=== PATIENT | female | born 1950 | race Caucasian/White ===

== ENCOUNTER → 2016-07-11 | Outpatient (CLI) | payer MEDICARE, MEDICAID ==
[~2016-07-11] MED LIST: AMOXICILLIN500 M2 PO; AMOXICILLIN500 MG PO; ATIVAN0.5 MG PO; ATIVAN1 MG PO; BACTRIM DS 8001 TA1 PO; BACTRIM DS 8001 TAB PO; BENADRYL25 M2 PO; BIAXIN500 MG PO; CALCIUM/VITAMIN1 TA8 PO; CARDIZEM CD120 MG PO; CARDIZEM CD240 MG PO; CATAFLAM50 MG PO; CEPHALEXIN500 M1 PO; CIPRO500 MG PO; CIPROFLOXACIN500 MG PO; CLARITIN10 MG PO; CLONIDINE0.3 MG PO; CYCLOBENZAPRINE10 MG PO; CYMBALTA30 MG PO; Catapres-Tts 10.1 MG PO; DEXILANT60 M1 PO; DILTIAZEM HCL120 MG PO; DOXYCYCLINE100 MG PO; EC NAPROSYN500 MG PO; ERYTHROMYCIN OPH1 GM OPH; FELDENE10 MG PO; FELDENE20 MG PO; FLEXERIL5 MG PO; HCTZ/TRIAMTEREN1 CAP PO; HYDRALAZINE HC100 MG PO; K-DUR 20MEQ20 MEQ PO; KEFLEX500 MG PO; LISINOPRIL10 MG PO; LOSARTAN POTASS25 M1 PO; Lopressor25 MG PO; MEDROL DOSEPAK4 MG PO; MELOXICAM7.5 MG PO; METOPROLOL50 MG PO; MOTRIN800 MG PO; PANTOPRAZOLE SO40 MG PO; POTASSIUM CHLO10 ME1 PO; PREDNISONE20 MG PO; PROTONIX40 MG PO; PROVENTIL0.09 MG/AC IH; PYRIDIUM200 M1 PO; PYRIDIUM200 MG PO; TRIAMCINOLONE AC0.1% T; VITAMIN D31000 I1 PO; ZESTRIL40 MG PO; ZITHROMAX Z PA250 MG PO; ZOLOFT50 MG PO; ZYRTEC10 MG PO
== END | disposition home or self-care (01) ==
LOC: RAD 14:14
DX: M50.30 Other cervical disc degeneration, unspecified cervical region (principal); M25.511 Pain in right shoulder

== ENCOUNTER 2016-11-19 08:56 | Emergency (ER) | payer MEDICARE, MEDICAID ==
[~2016-11-19] VITALS: Ht 170.1 cm; Wt 90.7 kg
--- NOTE | ~2016-11-19 | EKG ---
[place], [place] ELECTROCARDIOGRAM REPORT NAME: ROOPA SALCEDO UNIT #: [id number] ROOM: DOCTOR: RAFFY FRANKEL,LORNA BIRTHDATE: [birth year] DOS: 11/19/2016 TIME: 9:32 a.m. IMPRESSION: 1. Sinus rhythm, sinus tachycardia, rate 101. 2. Left axis deviation. 3. Poor R-wave progression. LORNA AKBAR MD CM:EKGRPT:ELECTROCARDIOGRAM REPORT [id number] LORNA AKBAR MD
[2016-11-19 09:23] LABS: BASO % 0.4 % (0.0-1.0); EOS % 0.2 % (1.0-4.0); HEMATOCRIT 44.3 % (37.0-47.0); LYMPH # 1.3 10*3/uL (1.3-4.4); LYMPH % 15.5 % (27.0-41.0); MEAN CELL VOLUME 86.2 fl (81.0-99.0); MEAN CORPUSCULAR HGB 29.2 pg (27.0-31.0); MEAN CORPUSCULAR HGB CONC 33.9 g/dl (33.0-37.0); MEAN PLATELET VOLUME 9.8 fl (9.6-12.3); MONO # 0.6 10*3/uL (0.1-1.0); MONO % 7.1 % (3.0-9.0); NEUT # 6.5 10*3/uL (2.3-7.9); NEUT % 76.2 % (47.0-73.0); PLATELET COUNT AUTOMATED 273 10*3/uL (130-400); RED BLOOD COUNT 5.14 10*6/uL (4.10-5.10); WHITE BLOOD COUNT 8.5 10*3/uL (4.8-10.8)
[2016-11-19 09:39] LABS: ALBUMIN 4.6 gm/dl (3.1-4.5); ALKALINE PHOSPHATASE 109 U/L (45-117); BUN 20 mg/dl (7-24); CHLORIDE 103 mmol/L (98-107); CREATININE 0.87 mg/dL (0.55-1.02); POTASSIUM 3.5 mmol/L (3.5-5.1); SGOT/AST 17 IU/L (3-35); SGPT/ALT 35 U/L (12-78); SODIUM 139 mmol/L (136-145); TOTAL PROTEIN 7.9 gm/dL (6.4-8.2)
[2016-11-19] MEDS ORDERED: HYDRALAZINE HC100 MG PO (09:46)
[2016-11-19] MEDS ORDERED: 'CLONIDINE0.1 MG PO (09:48)
[2016-11-19 10:09] LABS: BILIRUBIN NEGATIVE (NEGATIVE); BLOOD NEGATIVE (NEGATIVE); CLARITY CLEAR (CLEAR); COLOR YELLOW (YELLOW); GLUCOSE NEGATIVE (NEGATIVE); KETONE NEGATIVE (NEGATIVE); LEUKO ESTERASE NEGATIVE (NEGATIVE); NITRITE NEGATIVE (NEGATIVE); PH 6.5 (5.0-9.0); SPECIFIC GRAVITY <= 1.005 (1.005-1.030); UROBILINOGEN 0.2 E.U./dl (0.2-1.0)
[2016-11-19 10:16] LABS: BACTERIA TRACE
== END 2016-11-19 10:33 | disposition home or self-care (01) ==
LOC: ED 08:56
PROVIDERS: Registered Nurse
DX: R51 Headache (principal); R42 Dizziness and giddiness; I10 Essential (primary) hypertension; Z88.1 Allergy status to other antibiotic agents; Z88.6 Allergy status to analgesic agent; Z79.899 Other long term (current) drug therapy

== ENCOUNTER 2016-11-26 16:44 | Emergency (ER) | payer MEDICARE, MEDICAID ==
[~2016-11-26] VITALS: Ht 172.7 cm; Wt 77.1 kg
[~2016-11-26 16:44] MED LIST changes: +'CLONIDINE0.1 MG PO
[2016-11-26 17:34] LABS: BASO % 0.5 % (0.0-1.0); EOS # 0.1 10*3/uL (0.0-0.4); EOS % 0.7 % (1.0-4.0); HEMATOCRIT 44.6 % (37.0-47.0); HEMOGLOBIN 15.1 g/dl (12.0-16.0); LYMPH # 1.6 10*3/uL (1.3-4.4); LYMPH % 21.1 % (27.0-41.0); MEAN CELL VOLUME 85.8 fl (81.0-99.0); MEAN CORPUSCULAR HGB CONC 33.9 g/dl (33.0-37.0); MEAN PLATELET VOLUME 9.7 fl (9.6-12.3); MONO # 0.8 10*3/uL (0.1-1.0); MONO % 10.1 % (3.0-9.0); NEUT # 5.2 10*3/uL (2.3-7.9); NEUT % 67.2 % (47.0-73.0); PLATELET COUNT AUTOMATED 269 10*3/uL (130-400); RED CELL DISTRI WIDTH 12.1 % (0-14.5); WHITE BLOOD COUNT 7.7 10*3/uL (4.8-10.8)
[2016-11-26 17:51] LABS: ALBUMIN 4.5 gm/dl (3.1-4.5); ALKALINE PHOSPHATASE 90 U/L (45-117); BUN 16 mg/dl (7-24); CHLORIDE 107 mmol/L (98-107); CREATININE 0.83 mg/dL (0.55-1.02); POTASSIUM 3.3 mmol/L (3.5-5.1); SGOT/AST 20 IU/L (3-35); SGPT/ALT 32 U/L (12-78); SODIUM 140 mmol/L (136-145); TOTAL PROTEIN 7.1 gm/dL (6.4-8.2)
[2016-11-26 17:52] LABS: TROPONIN I < 0.015 ng/ml (<0.045)
== END 2016-11-26 17:50 | disposition short-term general hospital (02) ==
LOC: ED 16:44
PROVIDERS: Emergency Medicine
DX: I63.9 Cerebral infarction, unspecified (principal); I10 Essential (primary) hypertension; Z90.710 Acquired absence of both cervix and uterus; Z98.890 Other specified postprocedural states; Z79.899 Other long term (current) drug therapy; Z88.5 Allergy status to narcotic agent; Z88.1 Allergy status to other antibiotic agents; Z88.8 Allergy status to other drugs, medicaments and biological substances

== ENCOUNTER 2017-03-18 17:05 | Inpatient (IN) | payer MEDICARE, MEDICAID ==
[~2017-03-18] VITALS: Ht 170.1 cm; Wt 95.8 kg
--- NOTE | ~2017-03-18 | CON ---
[place], [place] REPORT OF CONSULTATION NAME: ROOPA SALCEDO UNIT #: [id number] ROOM: 529 DOCTOR: VAISHALI PRESTON MD BIRTHDATE: [birth year] DOS: 03/19/2017 HISTORY OF PRESENT ILLNESS: A 66-year-old patient who presented with chief complaint of sudden diarrhea. She explains is 66 times bowel movement in 1 day, subsequently has settled down by next day and she even has had a solid bowel movement today. The patient was admitted through the Emergency Room and lactic acid was 1.9. Comprehensive metabolic panel, GFR normal. Potassium 3.4 was addressed. Liver function tests normal. Lipase within normal limits. Rapid flu negative for A and B antigen. CBC: White blood cell was 18, H and H of 15 and 44, differential with neutrophil shift. CT scan of the abdomen and pelvis was done, mild colitis in left colon as expected to be reported. White blood cell dropped to 11.9 and potassium was supplemented 43.3 K. Folic acid and B12 within normal limit. Urine cultures were unremarkable. C. diff was negative. PAST MEDICAL HISTORY: Associated hypertension, anxiety, fibromyalgia, history of gastritis secondary to nonsteroidal anti-inflammatory. PAST SURGICAL HISTORY: Cholecystectomy, hysterectomy, benign breast biopsy, varicocele after extremity correction and tonsillectomy, corrective surgery of the eyes or strabismus. SOCIAL HISTORY: Nonsmoker, nonalcohol consumer. FAMILY HISTORY: Noncontributory. ALLERGIES: BACTRIM, DEMEROL AND LASIX, SHE SAYS. MEDICATIONS: At home has been reviewed including Dexilant, hydralazine, lorazepam, losartan and diltiazem. REVIEW OF SYSTEMS: HEENT: Denies double vision, blurred vision. RESPIRATORY: Denies acute shortness of breath. CARDIOVASCULAR: Denies acute chest pain. DIGESTIVE SYSTEM: Acute diarrhea 1 day duration. PHYSICAL EXAMINATION: VITAL SIGNS: Stable, nontoxic patient. HEAD, EARS, EYES, NOSE AND THROAT: Head normocephalic, nontraumatic. Mouth and buccal mucosa benign. NECK: Supple, no thyromegaly, no cervical lymphadenopathy. CHEST: Symmetric anatomy, equal expansion. No wheeze, no rhonchi. HEART: Normal sinus rhythm, no gallop, no murmur. ABDOMEN: Soft. No hepato-organomegaly. Bowel sounds present. No pulsatile mass. EXTREMITIES: No cyanosis, no pedal edema. NEUROLOGIC: Alert, oriented to time, place, person. IMPRESSION: Viral gastroenteritis, hypertension, anxiety, fibromyalgia. [place], [place] REPORT OF CONSULTATION NAME: ROOPA SALCEDO UNIT #: [id number] ROOM: 529 DOCTOR: VAISHALI PRESTON MD BIRTHDATE: [birth year] PLAN AND DISCUSSION: Hypokalemia has been addressed. IV hydration has been given. The patient back on regular diet. She has been tolerating food. C. diff has been negative. Supportive management and follow up as outpatient. VAISHALI PRESTON MD CM:CONSTR:REPORT OF CONSULTATION 1425 03/19/17 1522 interface
--- NOTE | ~2017-03-18 | PR ---
[place], [place] PROGRESS NOTE NAME: ROOPA SALCEDO UNIT #: [id number] ROOM: 529 DOCTOR: JO VALIENTE MD BIRTHDATE: [birth year] DOS: SUBJECTIVE: The patient states that she feels better. Her diarrhea has completely resolved. Only complaint that she has some back pain from the fibromyalgia flaring up. OBJECTIVE: VITAL SIGNS: Graphic trend shows pressure 132/72, pulse 100, respirations 18 and temperature 98.4. LUNGS: Clear. HEART: Regular. ABDOMEN: Soft. EXTREMITIES: Without any edema. ASSESSMENT AND PLAN: 1. Acute viral gastroenteritis with elevated white cell count, which has resolved. The patient's Clostridium difficile titers were negative. 2. Hypokalemia. Supplementation was given. The patient is stable. The plan is to discharge her to home today. Follow up as an outpatient. JO VALIENTE MD CM:PNTRANS [id number] JO VALIENTE MD 03/20/17 0907 interface
--- NOTE | ~2017-03-18 | DS ---
[place], [place] DISCHARGE SUMMARY NAME: ROOPA SALCEDO UNIT #: [id number] ROOM: 529 DOCTOR: JO VALIENTE MD BIRTHDATE: [birth year] DOS: 03/20/2017 DIAGNOSES: 1. Acute viral gastroenteritis. 2. Hypokalemia. 3. Bleeding per rectum from hemorrhoids. 4. Generalized anxiety disorder. 5. Benign hypertension. 6. Fibromyalgia. HOSPITAL COURSE: The patient is very well known to us, comes in with complaints of multiple episodes of diarrhea. Please see H and P dictated for further details after the patient was admitted. The patient was placed on IV antibiotics and IV fluids. The patient's diarrhea resolved completely. Dr. Harman did see the patient. After multiple episodes of diarrhea, she did have some small amounts of bright red blood per rectum, possibly from wiping and hemorrhoid. Dr. Harman advised consultation as an outpatient for colonoscopy. The patient this morning is stable without any complaints. Her diarrhea has completely resolved. She is eating a regular diet. She has no other GI complaints. The plan is to discharge her to home today. Follow up as an outpatient. JO VALIENTE MD CM:KEISHA [phone] JO VALIENTE MD 03/20/17 1505 interface
--- NOTE | ~2017-03-18 | WRIGHTHP ---
[place], [place] PATIENT HISTORY AND PHYSICAL EXAM NAME: ROOPA SALCEDO UNIT #: [id number] ROOM: 529 DOCTOR: JO VALIENTE MD BIRTHDATE: [birth year] DOS: 03/18/2017 HISTORY OF PRESENT ILLNESS: This patient is 66 years old. The patient said she had a virus with fever, cough and slight chest congestion a few days ago, was seen at [facility], was given a Z-YESI and she was starting to feel better. Two days ago she had visited her daughter's house, multiple family members had diarrhea. Yesterday she started having diarrhea and had multiple bowel movements. She could not remember the number of time she had gone, so decided to come into the emergency room. She denies having any chest pains or palpitations, not have any abdominal pain, nausea, any emesis. Does not have any chest pains or palpitations. PAST MEDICAL HISTORY: Significant for; 1. Benign hypertension. 2. Generalized anxiety disorder. 3. History of UTI. 4. Hemorrhagic cystitis by history. MEDICATIONS: She is currently are clonidine, Os-Caleb, Flexeril, Dexilant, diltiazem, hydralazine, lorazepam, and losartan. SOCIAL HISTORY: Nonsmoker, does not use any alcohol. PHYSICAL EXAMINATION: GENERAL: She is awake and alert and oriented. VITAL SIGNS: Blood pressure is 154/90, pulse of 111, respirations 18, temperature 98.7. LUNGS: Clear. HEART: Regular. ABDOMEN: Soft, scaphoid, nontender this morning. EXTREMITIES: Without any edema. LABORATORY DATA: Lactic acid was 1.9. White cell count was elevated at 18.3. Comprehensive glucose 149. Electrolytes were normal. Potassium 3.4. ASSESSMENT AND PLAN: 1. The patient with viral gastroenteritis with elevated white cell count, rule out infectious pathology, C. diff titers will be sent. Flagyl will be continued. 2. Benign hypertension. Restart home medications. 3. Hypokalemia. Supplementation will be given. 4. Possibility of urinary tract infection. Urine culture so far is coming back negative. [place], [place] PATIENT HISTORY AND PHYSICAL EXAM NAME: ROOPA SALCEDO UNIT #: [id number] ROOM: 529 DOCTOR: OJ VALIENTE MD BIRTHDATE: [birth year] JO VALIENTE MD CM:HISPHYS:PATIENT HISTORY AND PHYSICAL EXAMINATION 1033 [id number] JO VALIENTE MD 03/19/17 1347 interface
[2017-03-18 17:15] VITALS: BP 155/91
[2017-03-18 18:08] LABS: HEMATOCRIT 44.6 % (37.0-47.0); MEAN CELL VOLUME 87.1 fl (81.0-99.0); MEAN CORPUSCULAR HGB 29.3 pg (27.0-31.0); MEAN CORPUSCULAR HGB CONC 33.6 g/dl (33.0-37.0); MEAN PLATELET VOLUME 9.2 fl (9.6-12.3); PLATELET COUNT AUTOMATED 282 10*3/uL (130-400); RED BLOOD COUNT 5.12 10*6/uL (4.10-5.10); RED CELL DISTRI WIDTH 12.8 % (0-14.5); WHITE BLOOD COUNT 18.3 10*3/uL (4.8-10.8)
[2017-03-18 18:10] LABS: BILIRUBIN 2+ (NEGATIVE); BLOOD NEGATIVE (NEGATIVE); CLARITY SL CLOUDY (CLEAR); COLOR YELLOW (YELLOW); GLUCOSE NEGATIVE (NEGATIVE); KETONE 1+ (NEGATIVE); LEUKO ESTERASE TRACE (NEGATIVE); NITRITE POSITIVE (NEGATIVE); PH 5.5 (5.0-9.0); SPECIFIC GRAVITY >= 1.030 (1.005-1.030)
[2017-03-18 18:24] LABS: ALBUMIN 4.4 gm/dl (3.1-4.5); ALKALINE PHOSPHATASE 91 U/L (45-117); BUN 16 mg/dl (7-24); CHLORIDE 102 mmol/L (98-107); CREATININE 0.85 mg/dL (0.55-1.02); LIPASE 90 U/L (73-393); POTASSIUM 3.4 mmol/L (3.5-5.1); SGOT/AST 19 IU/L (3-35); SGPT/ALT 40 U/L (12-78); SODIUM 140 mmol/L (136-145); TOTAL PROTEIN 7.7 gm/dL (6.4-8.2)
[2017-03-18 18:30] LABS: BACTERIA 2+; MUCOUS TRACE; RBC 0-2 rbc/hpf (0-2); URIC ACID CRYSTALS 4+
[2017-03-18 18:30] LABS: TOTAL CELLS COUNTED 100 #CELLS
[2017-03-18 18:31] LABS: PLATELET SUFFICIENCY NORMAL (NORMAL)
[2017-03-18 20:01] VITALS: BP 162/97
[2017-03-18 20:32] VITALS: BP 145/98
[2017-03-18] MEDS ORDERED: CALCIUM500 M1 PO (20:45)
[2017-03-18] MEDS ORDERED: DEXILANT60 M1 PO (20:49)
[2017-03-18] MEDS ORDERED: CYCLOBENZAPRINE10 MG PO (20:50)
[2017-03-18] MEDS ORDERED: ATIVAN1 MG PO (20:51)
[2017-03-18] MEDS ORDERED: ATIVAN0.5 MG PO (20:51)
[2017-03-19] VITALS: BP 147/84
[2017-03-19 06:12] LABS: BASO % 0.3 % (0.0-1.0); EOS % 0.3 % (1.0-4.0); HEMATOCRIT 40.6 % (37.0-47.0); HEMOGLOBIN 13.5 g/dl (12.0-16.0); LYMPH # 1.3 10*3/uL (1.3-4.4); LYMPH % 10.7 % (27.0-41.0); MEAN CELL VOLUME 88.6 fl (81.0-99.0); MEAN CORPUSCULAR HGB 29.5 pg (27.0-31.0); MEAN CORPUSCULAR HGB CONC 33.3 g/dl (33.0-37.0); MEAN PLATELET VOLUME 9.8 fl (9.6-12.3); MONO # 0.8 10*3/uL (0.1-1.0); NEUT # 9.7 10*3/uL (2.3-7.9); NEUT % 81.2 % (47.0-73.0); PLATELET COUNT AUTOMATED 305 10*3/uL (130-400); RED BLOOD COUNT 4.58 10*6/uL (4.10-5.10); WHITE BLOOD COUNT 11.9 10*3/uL (4.8-10.8)
[2017-03-19 06:17] LABS: ALBUMIN 3.7 gm/dl (3.1-4.5); ALKALINE PHOSPHATASE 76 U/L (45-117); BUN 11 mg/dl (7-24); CHLORIDE 108 mmol/L (98-107); CHOLESTEROL 131 mg/dL (<200); CREATININE 0.84 mg/dL (0.55-1.02); FREE T4 1.28 ng/dl (0.76-1.46); HDL CHOLESTEROL 65 mg/dl (40-60); LDL CHOLESTEROL 48 mg/dL (9-159); PHOSPHOROUS 2.1 mg/dL (2.5-4.9); POTASSIUM 3.3 mmol/L (3.5-5.1); SGOT/AST 25 IU/L (3-35); SGPT/ALT 38 U/L (12-78); SODIUM 143 mmol/L (136-145); TOTAL PROTEIN 6.5 gm/dL (6.4-8.2); TRIGLYCERIDES 90 mg/dl (<150); VLDL CHOLESTEROL 18 mg/dL (6-40)
[2017-03-19 06:49] LABS: ACT PARTIAL THROMBO TIME 26.3 SECONDS (20.8-31.5)
[2017-03-19 07:39] LABS: VITAMIN D, 25-HYDROXY 19.7 ng/mL (30-100)
[2017-03-19 08:00] VITALS: BP 154/95
[2017-03-19 12:00] VITALS: BP 149/91
[2017-03-19 16:00] VITALS: BP 174/91
[2017-03-19 20:00] VITALS: BP 138/74
[2017-03-20] VITALS: BP 132/72
[2017-03-20 08:00] VITALS: BP 140/83
[2017-03-20] MEDS ORDERED: FLAGYL500 MG PO (08:39)
== END 2017-03-20 09:55 | disposition home or self-care (01) | DRG 872 ==
LOC: ED 17:05 → EDHOLD 19:29 → 5E 19:29
PROVIDERS: Hospitalist; Physician Assistant
DX: A41.9 Sepsis, unspecified organism (principal); A08.4 Viral intestinal infection, unspecified; K62.5 Hemorrhage of anus and rectum; I10 Essential (primary) hypertension; E87.6 Hypokalemia; M79.7 Fibromyalgia; K64.9 Unspecified hemorrhoids; F41.1 Generalized anxiety disorder; Z87.440 Personal history of urinary (tract) infections; Z79.899 Other long term (current) drug therapy; Z88.1 Allergy status to other antibiotic agents; Z88.8 Allergy status to other drugs, medicaments and biological substances; Z90.710 Acquired absence of both cervix and uterus; Z83.3 Family history of diabetes mellitus; Z82.49 Family history of ischemic heart disease and other diseases of the circulatory system; Z80.9 Family history of malignant neoplasm, unspecified; Z90.49 Acquired absence of other specified parts of digestive tract

== ENCOUNTER → 2017-04-02 | Outpatient (CLI) | payer MEDICARE, MEDICAID ==
[~2017-04-02] MED LIST changes: +CALCIUM500 M1 PO; +FLAGYL500 MG PO
[2017-04-02 13:01] LABS: CREATININE 0.86 mg/dL (0.55-1.02)
== END | disposition home or self-care (01) ==
LOC: LAB 12:02
PROVIDERS: Internal Medicine
DX: R22.1 Localized swelling, mass and lump, neck (principal)

== ENCOUNTER → 2017-04-03 | Outpatient (CLI) | payer MEDICARE, MEDICAID | END | disposition home or self-care (01) | LOC: MRI 01:14 | DX: M50.322 Other cervical disc degeneration at C5-C6 level (principal); M46.02 Spinal enthesopathy, cervical region; M48.02 Spinal stenosis, cervical region ==

== ENCOUNTER → 2017-04-04 | Outpatient (CLI) | payer MEDICARE, MEDICAID | END | disposition home or self-care (01) | LOC: CT 01:34 | DX: M62.48 Contracture of muscle, other site (principal); H92.03 Otalgia, bilateral; R22.1 Localized swelling, mass and lump, neck ==

== ENCOUNTER 2017-05-23 02:57 | Emergency (ER) | payer MEDICARE, MEDICAID ==
[~2017-05-23] VITALS: Ht 172.7 cm; Wt 104.3 kg
[2017-05-23] MEDS ORDERED: PREDNISONE20 M1 PO (03:44)
== END 2017-05-23 04:58 | disposition home or self-care (01) ==
LOC: ED 02:57
DX: T78.40XA Allergy, unspecified, initial encounter (principal); I10 Essential (primary) hypertension; Z88.1 Allergy status to other antibiotic agents; Z88.8 Allergy status to other drugs, medicaments and biological substances; Z88.6 Allergy status to analgesic agent; Z79.899 Other long term (current) drug therapy; Z86.73 Personal history of transient ischemic attack (TIA), and cerebral infarction without residual deficits; X58.XXXA Exposure to other specified factors, initial encounter

== ENCOUNTER → 2017-05-25 | Outpatient (CLI) | payer MEDICARE, MEDICAID ==
[~2017-05-25] MED LIST changes: +PREDNISONE20 M1 PO
== END | disposition home or self-care (01) ==
LOC: LAB 05-22 11:53
DX: E11.9 Type 2 diabetes mellitus without complications (principal)

== ENCOUNTER 2017-06-08 17:38 | Emergency (ER) | payer MEDICARE, MEDICAID ==
[~2017-06-08] VITALS: Ht 170.1 cm; Wt 86.2 kg
[2017-06-08] MEDS ORDERED: KENALOG 0.025%15 GM T (17:54)
[2017-06-08] MEDS ORDERED: METHYLPRED-DP4 MG PO (17:54)
[2017-06-08] MEDS ORDERED: ATARAX,VISTARIL50 MG PO (18:02)
== END 2017-06-08 18:13 | disposition home or self-care (01) ==
LOC: ED 17:38
DX: L23.9 Allergic contact dermatitis, unspecified cause (principal); Z88.2 Allergy status to sulfonamides; Z88.8 Allergy status to other drugs, medicaments and biological substances; Z79.899 Other long term (current) drug therapy

== ENCOUNTER 2017-08-19 15:50 | Emergency (ER) | payer MEDICARE, MEDICAID ==
[~2017-08-19] VITALS: Wt 83.5 kg
[~2017-08-19 15:50] MED LIST changes: +ATARAX,VISTARIL50 MG PO; +KENALOG 0.025%15 GM T; +METHYLPRED-DP4 MG PO
[2017-08-19 16:11] LABS: BILIRUBIN NEGATIVE (NEGATIVE); BLOOD NEGATIVE (NEGATIVE); CLARITY CLEAR (CLEAR); COLOR YELLOW (YELLOW); GLUCOSE NEGATIVE (NEGATIVE); KETONE NEGATIVE (NEGATIVE); LEUKO ESTERASE TRACE (NEGATIVE); NITRITE NEGATIVE (NEGATIVE); PH 6.5 (5.0-9.0); SPECIFIC GRAVITY <= 1.005 (1.005-1.030); UROBILINOGEN 0.2 E.U./dl (0.2-1.0)
[2017-08-19 16:23] LABS: BACTERIA TRACE
[2017-08-19] MEDS ORDERED: MACRODANTIN100 M1 PO (16:32)
== END 2017-08-19 16:36 | disposition home or self-care (01) ==
LOC: ED 15:50
PROVIDERS: Registered Nurse
DX: N39.0 Urinary tract infection, site not specified (principal); Z79.899 Other long term (current) drug therapy

== ENCOUNTER 2017-10-13 09:05 | Emergency (ER) | payer MEDICARE, MEDICAID ==
[~2017-10-13] VITALS: Ht 170.1 cm; Wt 71.7 kg
[~2017-10-13 09:05] MED LIST changes: +MACRODANTIN100 M1 PO
[2017-10-13] MEDS ORDERED: VITAMIN D-32000 UNIT PO (09:25)
[2017-10-13] MEDS ORDERED: ZOVIRAX800 MG PO (09:47)
[2017-10-13] MEDS ORDERED: NORCO 10-325 T1 EACH PO (09:47)
== END 2017-10-13 09:55 | disposition home or self-care (01) ==
LOC: ED 09:05
DX: B02.9 Zoster without complications (principal); I10 Essential (primary) hypertension; Z90.710 Acquired absence of both cervix and uterus; Z98.890 Other specified postprocedural states; Z79.899 Other long term (current) drug therapy; Z86.73 Personal history of transient ischemic attack (TIA), and cerebral infarction without residual deficits; Z88.8 Allergy status to other drugs, medicaments and biological substances; Z88.5 Allergy status to narcotic agent; Z88.1 Allergy status to other antibiotic agents

== ENCOUNTER 2017-12-26 05:57 | Emergency (ER) | payer MEDICARE, MEDICAID ==
[~2017-12-26] VITALS: Ht 170.1 cm; Wt 90.7 kg
[~2017-12-26 05:57] MED LIST changes: +NORCO 10-325 T1 EACH PO; +VITAMIN D-32000 UNI1 PO; +ZOVIRAX800 MG PO
[2017-12-26 06:59] LABS: BILIRUBIN 1+ (NEGATIVE); BLOOD 3+ (NEGATIVE); CLARITY TURBID (CLEAR); COLOR RED (YELLOW); GLUCOSE NEGATIVE (NEGATIVE); KETONE 1+ (NEGATIVE); LEUKO ESTERASE 3+ (NEGATIVE); NITRITE NEGATIVE (NEGATIVE); UROBILINOGEN 0.2 E.U./dl (0.2-1.0)
[2017-12-26 07:02] LABS: BACTERIA 2+; RBC TNTC rbc/hpf (0-2); WBC TNTC wbc/hpf (0-5)
[2017-12-26] MEDS ORDERED: PYRIDIUM200 M1 PO (07:07)
[2017-12-26] MEDS ORDERED: CIPRO500 MG PO (07:07)
== END 2017-12-26 07:13 | disposition home or self-care (01) ==
LOC: ED 05:57
PROVIDERS: Emergency Medicine
DX: N39.0 Urinary tract infection, site not specified (principal); I10 Essential (primary) hypertension; Z88.8 Allergy status to other drugs, medicaments and biological substances; Z88.2 Allergy status to sulfonamides; Z79.899 Other long term (current) drug therapy; Z90.710 Acquired absence of both cervix and uterus

== ENCOUNTER → 2018-02-16 | Outpatient (CLI) | payer MEDICARE, MEDICAID | END | disposition home or self-care (01) | LOC: LAB 14:00 | DX: N39.0 Urinary tract infection, site not specified (principal) ==

== ENCOUNTER 2018-06-07 12:35 | Emergency (ER) | payer MEDICARE, MEDICAID ==
[~2018-06-07] VITALS: Ht 170.1 cm; Wt 90.7 kg
[2018-06-07] MEDS ORDERED: CYCLOBENZAPRINE10 MG PO (16:21)
[2018-06-07] MEDS ORDERED: Motrin,Rufen800 MG PO (16:21)
== END 2018-06-07 17:10 | disposition home or self-care (01) ==
LOC: ED 12:35
DX: S40.012A Contusion of left shoulder, initial encounter (principal); S09.90XA Unspecified injury of head, initial encounter; M79.602 Pain in left arm; I10 Essential (primary) hypertension; Z86.73 Personal history of transient ischemic attack (TIA), and cerebral infarction without residual deficits; Z88.8 Allergy status to other drugs, medicaments and biological substances; Z88.2 Allergy status to sulfonamides; Z88.6 Allergy status to analgesic agent; Z79.899 Other long term (current) drug therapy; W10.8XXA Fall (on) (from) other stairs and steps, initial encounter; Y93.89 Activity, other specified; Y92.89 Other specified places as the place of occurrence of the external cause; Y99.8 Other external cause status

== ENCOUNTER → 2019-05-22 | Outpatient (CLI) | payer OTHER, MEDICAID ==
[~2019-05-22] MED LIST changes: +Motrin,Rufen800 MG PO
[2019-05-22 08:01] LABS: BASO % 0.4 % (0.0-1.0); EOS # 0.1 10*3/uL (0.0-0.4); EOS % 0.7 % (1.0-4.0); HEMATOCRIT 43.4 % (37.0-47.0); HEMOGLOBIN 14.3 g/dl (12.0-16.0); LYMPH # 1.6 10*3/uL (1.3-4.4); LYMPH % 21.6 % (27.0-41.0); MEAN CELL VOLUME 91.2 fl (81.0-99.0); MEAN CORPUSCULAR HGB CONC 32.9 g/dl (33.0-37.0); MEAN PLATELET VOLUME 9.6 fl (9.6-12.3); MONO # 0.5 10*3/uL (0.1-1.0); MONO % 7.1 % (3.0-9.0); NEUT # 5.3 10*3/uL (2.3-7.9); NEUT % 69.9 % (47.0-73.0); PLATELET COUNT AUTOMATED 292 10*3/uL (130-400); RED BLOOD COUNT 4.76 10*6/uL (4.10-5.10); RED CELL DISTRI WIDTH 13.1 % (0-14.5); WHITE BLOOD COUNT 7.6 10*3/uL (4.8-10.8)
[2019-05-22 08:32] LABS: ALBUMIN 3.9 gm/dl (3.1-4.5); ALKALINE PHOSPHATASE 74 U/L (45-117); BUN 22 mg/dl (7-24); CHLORIDE 106 mmol/L (98-107); CHOLESTEROL 161 mg/dL (<200); CREATININE 0.78 mg/dL (0.55-1.02); FREE T4 1.02 ng/dl (0.76-1.46); HDL CHOLESTEROL 80 mg/dl (40-60); LDL CHOLESTEROL 71 mg/dL (9-159); POTASSIUM 3.7 mmol/L (3.5-5.1); SGOT/AST 14 IU/L (3-35); SGPT/ALT 27 U/L (12-78); SODIUM 140 mmol/L (136-145); TRIGLYCERIDES 51 mg/dl (<150); VLDL CHOLESTEROL 10 mg/dL (6-40)
[2019-05-22 08:52] LABS: VITAMIN D, 25-HYDROXY 25.5 ng/mL (30-100)
== END | disposition home or self-care (01) ==
LOC: LAB 07:22
PROVIDERS: Internal Medicine
DX: Z00.00 Encounter for general adult medical examination without abnormal findings (principal); Z13.1 Encounter for screening for diabetes mellitus; I10 Essential (primary) hypertension; E55.9 Vitamin D deficiency, unspecified; E78.2 Mixed hyperlipidemia

== ENCOUNTER → 2019-07-30 | Outpatient (CLI) | payer OTHER, MEDICAID | END | disposition home or self-care (01) | LOC: MAMMO 14:00 | DX: Z12.31 Encounter for screening mammogram for malignant neoplasm of breast (principal) ==

== ENCOUNTER → 2020-04-08 | Outpatient (CLI) | payer OTHER, MEDICAID | END | disposition home or self-care (01) | LOC: COVID19 11:24 | PROVIDERS: ATTEND Internal Medicine | DX: Z20.822 Contact with and (suspected) exposure to COVID-19 (principal) ==

== ENCOUNTER → 2020-08-10 | Outpatient (CLI) | payer OTHER, MEDICAID | END | disposition home or self-care (01) | LOC: RAD 13:47 → MAMMO 14:30 | PROVIDERS: ATTEND Internal Medicine | DX: Z12.31 Encounter for screening mammogram for malignant neoplasm of breast (principal); Z13.820 Encounter for screening for osteoporosis; Z78.0 Asymptomatic menopausal state ==

== ENCOUNTER → 2020-09-09 | Outpatient (CLI) | payer OTHER, MEDICAID ==
[2020-09-09 08:11] LABS: BASO % 0.5 % (0.0-1.0); EOS # 0.1 10*3/uL (0.0-0.4); EOS % 0.9 % (1.0-4.0); HEMATOCRIT 38.8 % (37.0-47.0); LYMPH # 1.8 10*3/uL (1.3-4.4); LYMPH % 27.5 % (27.0-41.0); MEAN CELL VOLUME 91.1 fl (81.0-99.0); MEAN CORPUSCULAR HGB 30.3 pg (27.0-31.0); MEAN CORPUSCULAR HGB CONC 33.2 g/dl (33.0-37.0); MEAN PLATELET VOLUME 8.8 fl (9.6-12.3); MONO # 0.7 10*3/uL (0.1-1.0); MONO % 10.9 % (3.0-9.0); NEUT # 3.9 10*3/uL (2.3-7.9); NEUT % 59.9 % (47.0-73.0); PLATELET COUNT AUTOMATED 308 10*3/uL (130-400); RED BLOOD COUNT 4.26 10*6/uL (4.10-5.10); RED CELL DISTRI WIDTH 12.9 % (0-14.5); WHITE BLOOD COUNT 6.5 10*3/uL (4.8-10.8)
[2020-09-09 08:44] LABS: ALBUMIN 3.5 gm/dl (3.1-4.5); ALKALINE PHOSPHATASE 60 U/L (45-117); BUN 15 mg/dl (7-24); CHLORIDE 107 mmol/L (98-107); CHOLESTEROL 152 mg/dL (<200); CREATININE 0.72 mg/dL (0.55-1.02); LDL CHOLESTEROL 75 mg/dL (9-159); POTASSIUM 3.4 mmol/L (3.5-5.1); SGOT/AST 13 IU/L (3-35); SODIUM 139 mmol/L (136-145); TOTAL PROTEIN 6.4 gm/dL (6.4-8.2); TRIGLYCERIDES 60 mg/dl (<150)
[2020-09-09 08:50] LABS: FREE T4 0.99 ng/dl (0.76-1.46); SGPT/ALT 19 U/L (12-78)
[2020-09-09 08:51] LABS: VITAMIN D, 25-HYDROXY 55.2 ng/mL (30-100)
== END | disposition home or self-care (01) ==
LOC: LAB 07:52
PROVIDERS: ATTEND Internal Medicine
DX: I10 Essential (primary) hypertension (principal); E55.9 Vitamin D deficiency, unspecified; E78.2 Mixed hyperlipidemia; Z13.1 Encounter for screening for diabetes mellitus; Z13.21 Encounter for screening for nutritional disorder; Z00.01 Encounter for general adult medical examination with abnormal findings

== ENCOUNTER → 2020-11-09 | Outpatient (CLI) | payer OTHER, MEDICAID ==
[~2020-11-09] MED LIST changes: +POTASSIUM CHLO10 ME4 PO
== END | disposition home or self-care (01) ==
LOC: INJECTION 11-08 09:00
PROVIDERS: ATTEND Internal Medicine
DX: M81.0 Age-related osteoporosis without current pathological fracture (principal); I10 Essential (primary) hypertension; K21.9 Gastro-esophageal reflux disease without esophagitis; F41.9 Anxiety disorder, unspecified

== ENCOUNTER → 2021-03-31 | Outpatient (CLI) | payer OTHER, MEDICAID | END | disposition home or self-care (01) | LOC: COVID19 15:42 | PROVIDERS: ATTEND Internal Medicine | DX: Z20.822 Contact with and (suspected) exposure to COVID-19 (principal) ==

== ENCOUNTER → 2021-05-12 | Outpatient (CLI) | payer OTHER, MEDICAID | END | disposition home or self-care (01) | LOC: INJECTION 12:56 | PROVIDERS: ATTEND Internal Medicine | DX: M81.0 Age-related osteoporosis without current pathological fracture (principal) ==

== ENCOUNTER → 2021-08-06 | Outpatient (CLI) | payer OTHER, MEDICAID ==
[2021-08-06 08:39] LABS: BASO % 0.4 % (0.0-1.0); EOS % 0.4 % (1.0-4.0); HEMATOCRIT 40.9 % (37.0-47.0); LYMPH # 1.6 10*3/uL (1.3-4.4); LYMPH % 21.1 % (27.0-41.0); MEAN CELL VOLUME 86.5 fl (81.0-99.0); MEAN CORPUSCULAR HGB 29.4 pg (27.0-31.0); MEAN PLATELET VOLUME 9.2 fl (9.6-12.3); MONO # 0.6 10*3/uL (0.1-1.0); NEUT # 5.2 10*3/uL (2.3-7.9); NEUT % 69.8 % (47.0-73.0); PLATELET COUNT AUTOMATED 292 10*3/uL (130-400); RED BLOOD COUNT 4.73 10*6/uL (4.10-5.10); RED CELL DISTRI WIDTH 12.5 % (0-14.5); WHITE BLOOD COUNT 7.5 10*3/uL (4.8-10.8)
[2021-08-06 09:00] LABS: ALKALINE PHOSPHATASE 56 U/L (45-117); BUN 16 mg/dl (7-24); CHLORIDE 108 mmol/L (98-107); CHOLESTEROL 166 mg/dL (<200); CREATININE 0.75 mg/dL (0.55-1.02); FREE T4 1.03 ng/dl (0.76-1.46); LDL CHOLESTEROL 79 mg/dL (9-159); POTASSIUM 3.7 mmol/L (3.5-5.1); SGOT/AST 12 IU/L (3-35); SGPT/ALT 26 U/L (12-78); SODIUM 139 mmol/L (136-145); T3 UPTAKE 35 % (31-39); TOTAL PROTEIN 6.6 gm/dL (6.4-8.2); TRIGLYCERIDES 70 mg/dl (<150)
[2021-08-06 10:32] LABS: VITAMIN D, 25-HYDROXY 61.1 ng/mL (30-100)
== END | disposition home or self-care (01) ==
LOC: LAB 08:19
PROVIDERS: ATTEND Internal Medicine
DX: Z13.29 Encounter for screening for other suspected endocrine disorder (principal); Z13.89 Encounter for screening for other disorder; Z13.820 Encounter for screening for osteoporosis; I10 Essential (primary) hypertension

== ENCOUNTER → 2021-09-08 | Outpatient (CLI) | payer OTHER, MEDICAID | END | disposition home or self-care (01) | LOC: US 13:39 → CARD 15:00 | PROVIDERS: ATTEND Internal Medicine | DX: I65.23 Occlusion and stenosis of bilateral carotid arteries (principal); I35.8 Other nonrheumatic aortic valve disorders ==

== ENCOUNTER → 2021-12-12 | Outpatient (CLI) | payer OTHER, MEDICAID ==
[~2021-12-12] MED LIST changes: +AZO PO; +BIOTIN1 M1 PO; +CARDIZEM CD240 M1 PO; +MULTIVITAMIN1 EACH PO; +VITAMIN C1000 M5 PO; +VITAMIN D3125 MC1 PO
[2021-12-12 12:42] VITALS: BP 125/69
== END | disposition home or self-care (01) ==
LOC: INJECTION 11:00
PROVIDERS: ATTEND Internal Medicine
DX: M81.0 Age-related osteoporosis without current pathological fracture (principal); I10 Essential (primary) hypertension; K21.9 Gastro-esophageal reflux disease without esophagitis; M79.7 Fibromyalgia

== ENCOUNTER → 2022-08-05 | Outpatient (CLI) | payer OTHER, MEDICAID ==
[2022-08-05 09:33] LABS: BASO % 0.4 % (0.0-1.0); EOS # 0.1 10*3/uL (0.0-0.4); HEMATOCRIT 41.3 % (37.0-47.0); LYMPH # 1.7 10*3/uL (1.3-4.4); LYMPH % 24.5 % (27.0-41.0); MEAN CORPUSCULAR HGB 30.4 pg (27.0-31.0); MEAN CORPUSCULAR HGB CONC 33.4 g/dl (33.0-37.0); MEAN PLATELET VOLUME 8.9 fl (9.6-12.3); MONO # 0.6 10*3/uL (0.1-1.0); MONO % 9.2 % (3.0-9.0); NEUT # 4.5 10*3/uL (2.3-7.9); NEUT % 64.6 % (47.0-73.0); PLATELET COUNT AUTOMATED 290 10*3/uL (130-400); RED BLOOD COUNT 4.54 10*6/uL (4.10-5.10); RED CELL DISTRI WIDTH 12.6 % (0-14.5); WHITE BLOOD COUNT 6.9 10*3/uL (4.8-10.8)
[2022-08-05 10:00] LABS: ALKALINE PHOSPHATASE 59 U/L (46-116); BUN 18 mg/dl (9-23); CHLORIDE 107 mmol/L (98-107); CHOLESTEROL 156 mg/dL (<200); FREE T4 1.05 ng/dl (0.89-1.76); LDL CHOLESTEROL 78 mg/dL (9-159); POTASSIUM 3.8 mmol/L (3.4-5.1); SGPT/ALT 18 U/L (10-49); TOTAL PROTEIN 6.4 gm/dL (6.0-8.0); TRIGLYCERIDES 70 mg/dl (<150)
[2022-08-05 10:48] LABS: VITAMIN D, 25-HYDROXY 69.4 ng/mL (30-100)
== END | disposition home or self-care (01) ==
LOC: LAB 09:19
PROVIDERS: ATTEND Internal Medicine
DX: Z13.820 Encounter for screening for osteoporosis (principal); I10 Essential (primary) hypertension; Z13.89 Encounter for screening for other disorder; Z13.0 Encounter for screening for diseases of the blood and blood-forming organs and certain disorders involving the immune mechanism; Z13.6 Encounter for screening for cardiovascular disorders; Z13.1 Encounter for screening for diabetes mellitus; E55.9 Vitamin D deficiency, unspecified

== ENCOUNTER → 2022-08-07 | Outpatient (CLI) | payer OTHER, MEDICAID ==
[2022-08-07 12:10] VITALS: BP 133/71
== END | disposition home or self-care (01) ==
LOC: INJECTION 07-07 08:00
PROVIDERS: ATTEND Internal Medicine
DX: Z12.31 Encounter for screening mammogram for malignant neoplasm of breast (principal); M81.0 Age-related osteoporosis without current pathological fracture; I10 Essential (primary) hypertension; K21.9 Gastro-esophageal reflux disease without esophagitis; F41.9 Anxiety disorder, unspecified; Z90.710 Acquired absence of both cervix and uterus; Z90.49 Acquired absence of other specified parts of digestive tract; Z98.890 Other specified postprocedural states; Z13.820 Encounter for screening for osteoporosis; Z78.0 Asymptomatic menopausal state

== ENCOUNTER → 2023-02-09 | Outpatient (CLI) | payer OTHER, MEDICAID ==
[2023-02-09 10:53] VITALS: BP 114/75
== END | disposition home or self-care (01) ==
LOC: INJECTION 02-06 11:00
PROVIDERS: ATTEND Internal Medicine
DX: M81.0 Age-related osteoporosis without current pathological fracture (principal); I10 Essential (primary) hypertension; K21.9 Gastro-esophageal reflux disease without esophagitis; M79.7 Fibromyalgia; Z85.9 Personal history of malignant neoplasm, unspecified

== ENCOUNTER 2023-03-25 11:20 | Emergency (ER) | payer OTHER, MEDICAID ==
[~2023-03-25] VITALS: Ht 167.6 cm; Wt 81.6 kg
[2023-03-25 12:02] LABS: BASO % 0.4 % (0.0-1.0); EOS # 0.1 10*3/uL (0.0-0.4); EOS % 0.6 % (1.0-4.0); LYMPH # 1.9 10*3/uL (1.3-4.4); LYMPH % 20.5 % (27.0-41.0); MEAN CELL VOLUME 91.3 fl (81.0-99.0); MEAN CORPUSCULAR HGB 29.9 pg (27.0-31.0); MEAN CORPUSCULAR HGB CONC 32.7 g/dl (33.0-37.0); MEAN PLATELET VOLUME 9.1 fl (9.6-12.3); MONO # 0.7 10*3/uL (0.1-1.0); MONO % 8.2 % (3.0-9.0); NEUT # 6.3 10*3/uL (2.3-7.9); NEUT % 69.7 % (47.0-73.0); PLATELET COUNT AUTOMATED 345 10*3/uL (130-400); RED BLOOD COUNT 4.82 10*6/uL (4.10-5.10); RED CELL DISTRI WIDTH 12.1 % (0-14.5)
[2023-03-25 12:24] LABS: ALKALINE PHOSPHATASE 68 U/L (46-116); BUN 14 mg/dl (9-23); CHLORIDE 107 mmol/L (98-107); POTASSIUM 3.6 mmol/L (3.4-5.1); SGPT/ALT 19 U/L (5-49)
[2023-03-25 13:11] LABS: BILIRUBIN Negative (Negative); BLOOD Negative (Negative); CLARITY Clear (Clear); COLOR Yellow (Yellow); GLUCOSE Negative (Negative); KETONE Negative (Negative); LEUKO ESTERASE 1+ (Negative); NITRITE Negative (Negative); SPECIFIC GRAVITY <= 1.005 (1.001-1.030); UROBILINOGEN 0.2 E.U./dl (0.0-1.0)
[2023-03-25 13:26] LABS: BACTERIA 4+
[2023-03-25] MEDS ORDERED: MACROBID100 M1 PO (13:33)
[2023-03-25] MEDS ORDERED: FLUCONAZOLE100 MG PO (13:33)
== END 2023-03-25 13:33 | disposition home or self-care (01) ==
LOC: ED 11:20
PROVIDERS: Physician Assistant Medical
DX: B37.0 Candidal stomatitis (principal); Z20.822 Contact with and (suspected) exposure to COVID-19; N39.0 Urinary tract infection, site not specified; I10 Essential (primary) hypertension; Z88.8 Allergy status to other drugs, medicaments and biological substances; Z88.2 Allergy status to sulfonamides; Z79.899 Other long term (current) drug therapy; Z90.711 Acquired absence of uterus with remaining cervical stump; Z98.890 Other specified postprocedural states

== ENCOUNTER 2023-07-31 14:44 | Emergency (ER) | payer OTHER, MEDICAID ==
[~2023-07-31] VITALS: Wt 86.2 kg
[~2023-07-31 14:44] MED LIST changes: +FLUCONAZOLE100 MG PO; +MACROBID100 M1 PO
[2023-07-31] MEDS ORDERED: PREDNISONE50 MG PO (16:19)
[2023-07-31] MEDS ORDERED: AMOX-CLAV 875-1 EACH PO (16:19)
== END 2023-07-31 16:26 | disposition home or self-care (01) ==
LOC: ED 14:44
DX: J32.0 Chronic maxillary sinusitis (principal); Z88.8 Allergy status to other drugs, medicaments and biological substances; Z88.2 Allergy status to sulfonamides; Z79.899 Other long term (current) drug therapy; Z90.711 Acquired absence of uterus with remaining cervical stump

== ENCOUNTER → 2023-09-18 | Outpatient (CLI) | payer OTHER, MEDICAID ==
[~2023-09-18] MED LIST changes: +AMOX-CLAV 875-1 EACH PO; +DENOSUMAB 60 MG/ML SYRINGE SC ONE; +PREDNISONE50 MG PO
[2023-09-18 10:49] VITALS: BP 123/75
== END | disposition home or self-care (01) ==
LOC: INJECTION 08-17 09:30
PROVIDERS: ATTEND Internal Medicine
DX: M81.0 Age-related osteoporosis without current pathological fracture (principal); I10 Essential (primary) hypertension; K21.9 Gastro-esophageal reflux disease without esophagitis; F41.9 Anxiety disorder, unspecified; Z90.710 Acquired absence of both cervix and uterus

== ENCOUNTER → 2024-04-05 | Outpatient (CLI) | payer OTHER, MEDICAID ==
[~2024-04-05] MED LIST changes: -DENOSUMAB 60 MG/ML SYRINGE SC ONE
[2024-04-05 09:40] LABS: BASO % 0.5 % (0.0-1.0); EOS # 0.1 10*3/uL (0.0-0.4); EOS % 1.1 % (1.0-4.0); HEMATOCRIT 40.3 % (37.0-47.0); MEAN CELL VOLUME 91.4 fl (81.0-99.0); MEAN CORPUSCULAR HGB 29.7 pg (27.0-31.0); MEAN CORPUSCULAR HGB CONC 32.5 g/dl (33.0-37.0); MEAN PLATELET VOLUME 9.2 fl (9.6-12.3); MONO # 0.6 10*3/uL (0.1-1.0); MONO % 10.1 % (3.0-9.0); NEUT # 3.8 10*3/uL (2.3-7.9); NEUT % 61.4 % (47.0-73.0); PLATELET COUNT AUTOMATED 282 10*3/uL (130-400); RED BLOOD COUNT 4.41 10*6/uL (4.10-5.10); RED CELL DISTRI WIDTH 12.2 % (0-14.5); WHITE BLOOD COUNT 6.2 10*3/uL (4.8-10.8)
[2024-04-05 10:02] LABS: ALKALINE PHOSPHATASE 62 U/L (46-116); BUN 20 mg/dl (9-23); CHLORIDE 109 mmol/L (98-107); CHOLESTEROL 143 mg/dL (<200); LDL CHOLESTEROL 64 mg/dL (9-159); POTASSIUM 3.8 mmol/L (3.4-5.1); SGPT/ALT 17 U/L (5-49); TOTAL PROTEIN 6.2 gm/dL (6.0-8.0); TRIGLYCERIDES 64 mg/dl (<150)
[2024-04-05 11:44] LABS: VITAMIN D, 25-HYDROXY 64.5 ng/mL (30-100)
== END | disposition home or self-care (01) ==
LOC: LAB 09:17
PROVIDERS: ATTEND Internal Medicine
DX: M81.0 Age-related osteoporosis without current pathological fracture (principal); I10 Essential (primary) hypertension; M79.7 Fibromyalgia; M17.0 Bilateral primary osteoarthritis of knee; M47.816 Spondylosis without myelopathy or radiculopathy, lumbar region; Z79.891 Long term (current) use of opiate analgesic; K21.00 Gastro-esophageal reflux disease with esophagitis, without bleeding; R53.83 Other fatigue; E55.9 Vitamin D deficiency, unspecified; E53.9 Vitamin B deficiency, unspecified

== ENCOUNTER → 2024-05-29 | Outpatient (CLI) | payer OTHER, MEDICAID ==
[~2024-05-29] MED LIST changes: +DENOSUMAB 60 MG/ML SYRINGE SC ONE
[2024-05-29 10:50] VITALS: BP 136/79
== END | disposition home or self-care (01) ==
LOC: INJECTION 05-06 09:00 → MAMMO 05-26 09:00 → INJECTION 05-26 10:00
PROVIDERS: ATTEND Internal Medicine
DX: M81.0 Age-related osteoporosis without current pathological fracture (principal); N64.89 Other specified disorders of breast; N63.21 Unspecified lump in the left breast, upper outer quadrant; Z12.31 Encounter for screening mammogram for malignant neoplasm of breast

== ENCOUNTER → 2024-10-04 | Outpatient (CLI) | payer OTHER, MEDICAID ==
[~2024-10-04] MED LIST changes: -DENOSUMAB 60 MG/ML SYRINGE SC ONE; +DICLOFENAC SOD75 MG PO; +DILTIAZEM 24HR300 MG PO; +LORAZEPAM1 MG PO; +LOSARTAN POTAS100 M1 PO
[2024-10-04 09:40] LABS: VITAMIN D, 25-HYDROXY 45.4 ng/mL (30-100)
== END | disposition home or self-care (01) ==
LOC: LAB 08:20
PROVIDERS: ATTEND Internal Medicine
DX: E83.52 Hypercalcemia (principal); M79.7 Fibromyalgia; M85.9 Disorder of bone density and structure, unspecified; G89.4 Chronic pain syndrome; Z13.0 Encounter for screening for diseases of the blood and blood-forming organs and certain disorders involving the immune mechanism; Z13.1 Encounter for screening for diabetes mellitus; Z13.21 Encounter for screening for nutritional disorder; Z13.220 Encounter for screening for lipoid disorders; Z13.228 Encounter for screening for other metabolic disorders; Z13.29 Encounter for screening for other suspected endocrine disorder; Z13.6 Encounter for screening for cardiovascular disorders; Z13.89 Encounter for screening for other disorder

== ENCOUNTER → 2024-12-03 | Outpatient (CLI) | payer OTHER, MEDICAID ==
[~2024-12-03] MED LIST changes: +DENOSUMAB 60 MG/ML SYRINGE SC ONE
[2024-12-03 10:35] VITALS: BP 123/68
== END | disposition home or self-care (01) ==
LOC: INJECTION 12-01 09:30
PROVIDERS: ATTEND Internal Medicine
DX: M81.0 Age-related osteoporosis without current pathological fracture (principal)